=== PATIENT | male | born 1970 | race American Indian/Alaskan Native ===

== ENCOUNTER 2017-08-09 11:14 | Emergency (ER) | payer MEDICARE, MEDICAID ==
[2017-08-09 11:14] VITALS: BMI 34.0
[2017-08-09 11:18] VITALS: TEMP 98.7; O2SAT 100
--- NOTE | 2017-08-09 11:29 | ED PDOC ---
HPI: Male Pain Time Seen by Provider: 08/09/17 11:27 Chief Complaint (Nursing): Male Genitourinary Chief Complaint (Provider): erectile dysfunction History Per: Patient (46 y/o male here for erectile dysfunction. Patient states he has had ongoing difficulty x 5 months and is here to request rx for medication. Denies any dysuria etc. ) Past Medical History Reviewed: Historical Data, Nursing Documentation, Vital Signs Vital Signs: Last Vital Signs Temp 98.7 F 08/09/17 11:17 Pulse 110 H 08/09/17 11:17 Resp 20 08/09/17 11:17 BP 176/97 H 08/09/17 11:17 Pulse Ox 100 08/09/17 11:17 - Medical History PMH: HIV, HTN - Family History Family History: States: No Known Family Hx - Immunization History Hx Tetanus Toxoid Vaccination: No Hx Influenza Vaccination: Yes Hx Pneumococcal Vaccination: Yes - Home Medications Home Medications: Ambulatory Orders Medication Instructions Recorded Unobtainable [Unobtainable] 10/07/13 - Allergies Allergies/Adverse Reactions: Allergies Allergy/AdvReac Type Severity Reaction Status Date / Time No Known Allergies Allergy Unverified 10/07/13 16:01 Review of Systems ROS Statement: Except As Marked, All Systems Reviewed And Found Negative Physical Exam - Reviewed Nursing Documentation Reviewed: Yes Vital Signs Reviewed: Yes - Physical Exam Appears: Positive for: Well, Non-toxic, No Acute Distress Head Exam: Positive for: ATRAUMATIC, NORMAL INSPECTION, NORMOCEPHALIC Skin: Positive for: Normal Color, Warm, DRY Eye Exam: Positive for: EOMI, Normal appearance, PERRL ENT: Positive for: Normal ENT Inspection Neck: Positive for: Normal, Painless ROM Cardiovascular/Chest: Positive for: Regular Rate, Rhythm Respiratory: Positive for: CNT, Normal Breath Sounds Gastrointestinal/Abdominal: Positive for: Normal Exam, Bowel Sounds, Soft Back: Positive for: Normal Inspection Extremity: Positive for: Normal ROM Neurologic/Psych: Positive for: Alert, Oriented - ECG O2 Sat by Pulse Oximetry: 100 - Progress ED Course And Treament: d/w patient to f/u with Dr. Jose to evaluate and address concern of erectile dysfunction. Disposition - Clinical Impression Clinical Impression: Erectile dysfunction - Patient ED Disposition Is Patient to be Admitted: No - Disposition Disposition: Routine/Home Disposition Time: 11:29 Condition: STABLE Instructions: Erectile Dysfunction (GEN)
[2017-08-09 13:10] VITALS: BP 152/85; PULSE 78; RESP 16
== END 2017-08-09 11:53 | disposition home or self-care (01) ==
LOC: H.ER 11:14
DX: N52.9 Male erectile dysfunction, unspecified (principal); I10 Essential (primary) hypertension